=== PATIENT | female | born 1975 | race Asian ===

== ENCOUNTER 2023-04-04 10:08 | Day surgery (SDC) | payer OTHER ==
[~2023-04-04] VITALS: Ht 160 cm; Wt 60.3 kg
[2023-04-04] MEDS ORDERED: fentaNYL citrate 0.05 MG/ML VIAL ONE (12:42)
[2023-04-04] MEDS ORDERED: LIDOCAINE 2% 100 MG/5 ML UJET TP ONE (12:43)
== END 2023-04-04 13:05 | disposition home or self-care (01) ==
LOC: MDS 10:08 → MMU 10:15 → MDS 13:05
PROVIDERS: ATTEND Internal Medicine Gastroenterology
DX: K62.5 Hemorrhage of anus and rectum (principal); K64.9 Unspecified hemorrhoids; I10 Essential (primary) hypertension; Z79.899 Other long term (current) drug therapy
CPT/HCPCS: 45378; J3010